=== PATIENT | female | born 1925 | race Caucasian/White ===

== ENCOUNTER → 2017-08-10 | Day surgery (SDC) | payer OTHER, MEDICARE ==
[~2017-08-10] VITALS: Ht 152.4 cm; Wt 57.6 kg
[~2017-08-10] MED LIST: AMITRIPTYLINE H10 M2 PO; COLACE100 M1 PO; LEVOXYL75 MCG PO; LOSARTAN POTAS100 M1 PO; MELATONIN3 M4 PO; SECURA PROTECTI50 GM TOP
--- NOTE | 2017-08-10 11:58 | Operative Report ---
Operative/Inv Procedure Report Surgery Date: 08/10/17 Name of Procedure: Pacemaker generator change Pre-Operative Diagnosis: Sick sinus syndrome with symptomatic bradycardia and atrial fibrillation Post-Operative Diagnosis: Same Estimated Blood Loss: scant Surgeon/Automobile Tester: Tj Harp MD,Fawad Mandel Anesthesia: local monitored anesthesi Operative/Procedure Note Note: After placement of monitoring lines patient's left shoulder area was prepped and draped in a sterile fashion. One percent lidocaine was used local anesthetic. The pacemaker pocket incision was opened and the generator explanted. The leads were tested and found to be of good sensing and pacing thresholds with pacing threshold checked on the ventricular lead. The leads were then connected to a [employer] MRI compatible dual-chamber device. Hemostasis was achieved with electrocautery. The pocket was flushed with antibiotic irrigation and closed with running Vicryl suture followed by running Vicryl subcuticular suture. The patient tolerated the procedure well and was brought to recovery room in stable condition. CC: Sophie NIEVES PHD,Shaylee Harrington
== END ==
LOC: STS 02:05
DX: Z45.010 Encounter for checking and testing of cardiac pacemaker pulse generator [battery] (principal); I49.5 Sick sinus syndrome; R00.1 Bradycardia, unspecified; I10 Essential (primary) hypertension; I48.91 Unspecified atrial fibrillation; Z85.12 Personal history of malignant neoplasm of trachea; Z87.891 Personal history of nicotine dependence
CPT/HCPCS: C1785; J0690; J2250